=== PATIENT | female | born 1965 | race Caucasian/White ===

== ENCOUNTER 2016-04-08 12:24 | Emergency (ER) | payer BC ==
[2016-04-08 14:04] VITALS: BP 142/83
--- NOTE | 2016-04-08 14:44 | UC ---
UC General HPI - HPI Summary HPI Summary: complaint of left ear feels plugged can't hear out of left ear for approx 1 week feels like there si fluid and pressure in her ear has been urinating more frequently for the last 2-3 days no pain with urination, no increase in urgency denies abnormal vaginal discharge tried monostat and probiotics without any relief denies abdominal pain, back pain - History of Current Complaint Chief Complaint: UCGeneralIllness Stated Complaint: EAR COMPLAINT Time Seen by Provider: 04/08/16 14:27 - Allergy/Home Medications Allergies/Adverse Reactions: Allergies Allergy/AdvReac Type Severity Reaction Status Date / Time environmental Allergy Intermediate Sneezing Uncoded 04/08/16 13:59 Pistacchio Allergy Hives Uncoded 04/08/16 13:59 PMH/Surg Hx/FS Hx/Imm Hx Previously Healthy: Yes Endocrine History Of: Denies: Diabetes Cardiovascular History Of: Denies: Cardiac Disorders Respiratory History Of: Denies: Asthma - Surgical History Surgical History: Yes Surgery Procedure, Year, and Place: ear tubes TMJ;. C-SECT X 1. dental surgery , sinus lift and implant 2014 Dr. Collins - Family History Known Family History: Positive: None, Other - brother: colon cancer, sister: breast; Negative: Cardiac Disease, Hypertension, Diabetes - Social History Occupation: Employed Full-time Lives: With Family Alcohol Use: Occasionally Alcohol Amount: 2 times a week Substance Use Type: None Smoking Status (MU): Never Smoked Tobacco Have You Smoked in the Last Year: No - Immunization History Most Recent Influenza Vaccination: January 2016 Most Recent Tetanus Shot: within past 10 years per pt Hx Tetanus, Diphtheria Vaccination: Yes Vaccination Up to Date: Yes Review of Systems Constitutional: Negative Skin: Negative Eyes: Negative ENT: Ear Ache Respiratory: Negative Cardiovascular: Negative Gastrointestinal: Negative Genitourinary: Frequency Motor: Negative Neurovascular: Negative Musculoskeletal: Negative Neurological: Negative Psychological: Negative All Other Systems Reviewed And Are Negative: Yes Physical Exam Triage Information Reviewed: Yes Appearance: No Pain Distress, Well-Nourished Vital Signs: Initial Vital Signs Temp 98.2 F 04/08/16 13:56 Pulse 66 04/08/16 13:56 Resp 16 04/08/16 13:56 BP 142/83 04/08/16 13:56 Pulse Ox 99 04/08/16 13:56 Vital Signs Reviewed: Yes Eyes: Positive: Conjunctiva Clear ENT: Positive: Pharynx normal, Other: - left TM blocked by cerumen. Negative: Nasal congestion Neck: Positive: No Lymphadenopathy Respiratory: Positive: Lungs clear, Normal breath sounds, No respiratory distress Cardiovascular: Positive: RRR, No Murmur, Pulses Normal Abdomen Description: Positive: Nontender, Soft Bowel Sounds: Positive: Present Musculoskeletal: Positive: No Edema Neurological: Positive: Alert Psychological Exam: Normal Skin Exam: Normal Procedures - Additional Procedures Additional Procedures: arterial blood draw - TM- cermen removed with flusign and instrument , TM flat and clear Course/Dx - Course Course Of Treatment: exam completed. 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 Discharge - Discharge Plan Condition: Stable Disposition: HOME Patient Education Materials: Cerumen Impaction (ED) Referrals: Alondra Bradford MD [Primary Care Provider] - Additional Instructions: Please review your discharge instructions. If your symptoms do not improve please call your primary care provider or return to urgent care
== END 2016-04-08 15:19 | disposition home or self-care (01) ==
LOC: UCCORT 12:24
DX: H61.22 Impacted cerumen, left ear (principal)
CPT/HCPCS: 99213; G0463

== ENCOUNTER 2016-04-21 17:44 | Emergency (ER) | payer BC ==
[2016-04-21 19:37] VITALS: BP 137/70
[2016-04-21] MEDS ORDERED: Amoxicillin/Clavulanate TAB* 875 MG PO ONE (19:54)
--- NOTE | 2016-04-21 20:11 | UC ---
Throat Pain/Nasal Navin HPI - HPI Summary HPI Summary: SINUS PRESSURE CONGESTION FOR ONE WEEK; HISTORY OF SINUS SURGERY, LOW GRADE FEVER. WORSENING FACIAL PRESSURE AND PAIN MOSTLY ON RIGHT SIDE - History of Current Complaint Chief Complaint: UCGeneralIllness Stated Complaint: SINUS PAIN,CONGESTION Time Seen by Provider: 04/21/16 19:41 Hx Obtained From: Patient Hx Last Menstrual Period: 10/18/15 Onset/Duration: Gradual Onset, Lasting Weeks, Worse Since - DAILY Severity: Moderate Pain Intensity: 8 Pain Scale Used: 0-10 Numeric Cough: Productive Associated Signs & Symptoms: Positive: Dysphagia, Sinus Discomfort, Nasal Discharge, Fever - Epiglottits Risk Factors Epiglottis Risk Factors: Negative - Allergies/Home Medications Allergies/Adverse Reactions: Allergies Allergy/AdvReac Type Severity Reaction Status Date / Time environmental Allergy Intermediate Sneezing Uncoded 04/21/16 19:32 Pistacchio Allergy Hives Uncoded 04/21/16 19:32 Home Medications: Home Medications Fluticasone NASAL SPRAY 50MCG* [Flonase NASAL SPRAY 50MCG*] 2 spray BOTH NARES DAILY 04/21/16 [History Confirmed 04/21/16] Ibuprofen TAB* [Advil TAB*] 400 mg PO Q6H PRN 04/21/16 [History Confirmed ] PMH/Surg Hx/FS Hx/Imm Hx Previously Healthy: Yes Endocrine History Of: Denies: Diabetes Cardiovascular History Of: Denies: Cardiac Disorders Respiratory History Of: Denies: Asthma - Surgical History Surgical History: Yes Surgery Procedure, Year, and Place: ear tubes TMJ;. C-SECT X 1. dental surgery , sinus lift and implant 2014 Dr. Collins - Family History Known Family History: Positive: None, Other - brother: colon cancer, sister: breast; Negative: Cardiac Disease, Hypertension, Diabetes, Respiratory Disease - Social History Occupation: Employed Full-time Lives: With Family Alcohol Use: Occasionally Alcohol Amount: 2 times a week Substance Use Type: None Smoking Status (MU): Never Smoked Tobacco Have You Smoked in the Last Year: No - Immunization History Most Recent Influenza Vaccination: January 2016 Most Recent Tetanus Shot: within past 10 years per pt Hx Tetanus, Diphtheria Vaccination: Yes Vaccination Up to Date: Yes Review of Systems Constitutional: Fever Skin: Negative Eyes: Negative ENT: Ear Ache, Nasal Discharge Respiratory: Cough Cardiovascular: Negative Gastrointestinal: Negative Genitourinary: Negative Motor: Negative Neurovascular: Negative Musculoskeletal: Negative Neurological: Negative Psychological: Negative All Other Systems Reviewed And Are Negative: Yes Physical Exam Triage Information Reviewed: Yes Appearance: Well-Appearing, No Pain Distress, Well-Nourished Vital Signs: Initial Vital Signs Temp 99.7 F 04/21/16 19:32 Pulse 78 04/21/16 19:32 Resp 16 04/21/16 19:32 BP 137/70 04/21/16 19:32 Pulse Ox 98 04/21/16 19:32 Vital Signs Reviewed: Yes Eye Exam: Normal ENT: Positive: Hearing grossly normal, TM bulging, TM dull Dental Exam: Normal Neck exam: Normal Neck: Positive: Supple, Nontender, No Lymphadenopathy Respiratory Exam: Normal Respiratory: Positive: Chest non-tender, Lungs clear, Normal breath sounds, No respiratory distress, No accessory muscle use Cardiovascular Exam: Normal Cardiovascular: Positive: RRR, No Murmur, Pulses Normal, Brisk Capillary Refill Abdominal Exam: Normal Abdomen Description: Positive: Nontender, No Organomegaly, Soft Musculoskeletal Exam: Normal Musculoskeletal: Positive: Strength Intact Neurological Exam: Normal Psychological Exam: Normal Psychological: Positive: Normal Response To Family Skin Exam: Normal Throat Pain/Nasal Course/Dx - Differential Dx/Diagnosis Differential Diagnosis/HQI/PQRI: Otitis Media, Sinusitis, URI Provider Diagnoses: SINUSITIS Discharge - Discharge Plan Condition: Stable Disposition: HOME Prescriptions: Amoxicillin/Clavulanate TAB* [Augmentin TAB 875*] 875 mg PO BID #20 tab Patient Education Materials: Sinusitis (ED) Referrals: Alondra Bradford MD [Primary Care Provider] -
== END 2016-04-21 20:02 | disposition home or self-care (01) ==
LOC: UCCORT 17:44
DX: J32.9 Chronic sinusitis, unspecified (principal)
CPT/HCPCS: 99212; A9270-GY; G0463

== ENCOUNTER 2016-08-09 13:05 | Emergency (ER) | payer BC ==
[2016-08-09 13:42] VITALS: BP 135/73
--- NOTE | 2016-08-09 14:39 | UC ---
Ear Complaint HPI - HPI Summary HPI Summary: here to have left ear flushed---needs irragation q 3 months--- - History of Current Complaint Chief Complaint: UCEar Stated Complaint: LEFT EAR PAIN Time Seen by Provider: 08/09/16 14:29 Hx Obtained From: Patient Hx Last Menstrual Period: n/a ?: No Onset/Duration: Gradual Onset, Lasting Weeks, Still Present Severity Initially: Moderate Severity Currently: Moderate Pain Intensity: 6 Pain Scale Used: 0-10 Numeric Aggravating Factors: Nothing Alleviating Factors: Nothing - Allergies/Home Medications Allergies/Adverse Reactions: Allergies Allergy/AdvReac Type Severity Reaction Status Date / Time environmental Allergy Intermediate Sneezing Uncoded 08/09/16 13:42 Pistacchio Allergy Hives Uncoded 08/09/16 13:42 PMH/Surg Hx/FS Hx/Imm Hx Previously Healthy: Yes Endocrine History Of: Denies: Diabetes Cardiovascular History Of: Denies: Cardiac Disorders Respiratory History Of: Denies: Asthma - Surgical History Surgical History: Yes Surgery Procedure, Year, and Place: ear tubes TMJ;. C-SECT X 1. dental surgery , sinus lift and implant 2014 Dr. Collins - Family History Known Family History: Positive: None, Other - brother: colon cancer, sister: breast; Negative: Cardiac Disease, Hypertension, Diabetes, Respiratory Disease - Social History Occupation: Employed Full-time Lives: With Family Alcohol Use: Occasionally Alcohol Amount: 2 times a week Substance Use Type: None Smoking Status (MU): Never Smoked Tobacco Have You Smoked in the Last Year: No - Immunization History Most Recent Influenza Vaccination: January 2016 Most Recent Tetanus Shot: within past 10 years per pt Hx Tetanus, Diphtheria Vaccination: Yes Vaccination Up to Date: Yes Review of Systems Constitutional: Negative Skin: Negative Eyes: Negative ENT: Ear Ache - left ear Respiratory: Negative Cardiovascular: Negative Gastrointestinal: Negative Genitourinary: Negative Motor: Negative Neurovascular: Negative Musculoskeletal: Negative Neurological: Negative Psychological: Negative All Other Systems Reviewed And Are Negative: Yes Physical Exam Triage Information Reviewed: Yes Appearance: Well-Appearing, No Pain Distress, Well-Nourished Vital Signs: Initial Vital Signs Temp 99.1 F 08/09/16 13:34 Pulse 63 08/09/16 13:34 Resp 16 08/09/16 13:34 BP 135/73 08/09/16 13:34 Pulse Ox 99 08/09/16 13:34 Eye Exam: Normal Eyes: Positive: Conjunctiva Clear ENT Exam: Normal ENT: Positive: Normal ENT inspection, Hearing grossly normal, Pharynx normal, TMs normal - left orginally with cerumen impacction after irragation TM WNL. Negative: Nasal congestion, Nasal drainage Dental Exam: Normal Neck exam: Normal Neck: Positive: Supple, Nontender, No Lymphadenopathy Respiratory Exam: Normal Respiratory: Positive: Chest non-tender, Lungs clear, Normal breath sounds, No respiratory distress, No accessory muscle use Cardiovascular Exam: Normal Cardiovascular: Positive: RRR, No Murmur, Pulses Normal, Brisk Capillary Refill Musculoskeletal Exam: Normal Musculoskeletal: Positive: Strength Intact, ROM Intact, No Edema Neurological Exam: Normal Neurological: Positive: Alert, Muscle Tone Normal, Fatigued Psychological Exam: Normal Psychological: Positive: Normal Response To Family, Age Appropriate Behavior Skin Exam: Normal Skin: Positive: rashes, breakdown Re-Evaluation - Re-Evaluation First Eval Change: Improved - tolerated irragation well, patient reports resolve of pain Ear Complaint Course/Dx - Course Course Of Treatment: follow with Dr. Rios ( at your preference) as you have orginaaly planed, re-check prb - Differential Dx/Diagnosis Differential Diagnosis/HQI/PQRI: Cerumen Impaction, Otitis Media, Perforated TM , Trauma, URI Provider Diagnoses: helt ear cerumen impaction Discharge - Discharge Plan Condition: Stable Disposition: HOME Patient Education Materials: Cerumen Impaction (ED) Referrals: Dennis Ta MD [Medical Doctor] - (as planned) No Primary Care Phys,NOPCP [Primary Care Provider] -
== END 2016-08-09 15:22 | disposition home or self-care (01) ==
LOC: UCCORT 13:05
DX: H61.22 Impacted cerumen, left ear (principal)
CPT/HCPCS: 99212; G0463

== ENCOUNTER 2017-02-28 11:28 | Emergency (ER) | payer BC ==
[2017-02-28 12:09] VITALS: BP 143/85
--- NOTE | 2017-02-28 12:56 | UC ---
Ear Complaint HPI - HPI Summary HPI Summary: 51 yo female c/o Left ear clogged, discomfort, hearing problems. Sx started early this week, progressively worse. No fever / chills. No recent illness. No n/v. 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 - History of Current Complaint Chief Complaint: UCEar Stated Complaint: LEFT EAR CLOGGED Time Seen by Provider: 02/28/17 12:39 Hx Obtained From: Patient Hx Last Menstrual Period: n/a ?: No - Allergies/Home Medications Allergies/Adverse Reactions: Allergies Allergy/AdvReac Type Severity Reaction Status Date / Time environmental Allergy Intermediate Sneezing Uncoded 02/28/17 12:09 Pistacchio Allergy Hives Uncoded 02/28/17 12:09 Home Medications: Home Medications Cetirizine* [ZyrTEC 10 MG TAB*] 10 mg PO QPM 02/28/17 [History Confirmed ] Cyclosporine 0.05% OPHTH (NF) [Restasis 0.05% OPHTH] 1 drop BOTH EYES BID [History Confirmed 02/28/17] PMH/Surg Hx/FS Hx/Imm Hx Previously Healthy: Yes - see hpi - Surgical History Surgical History: Yes Surgery Procedure, Year, and Place: ear tubes TMJ; b/l cataract surgery 11/2016 Dr. Yan. C-SECT X 1. dental surgery, right sinus lift and implant 2014 Dr. Collins - Family History Known Family History: Positive: None, Other - brother: colon cancer, sister: breast; Negative: Cardiac Disease, Hypertension, Diabetes, Respiratory Disease - Social History Alcohol Use: Occasionally Alcohol Amount: 2 times a week Substance Use Type: None Smoking Status (MU): Never Smoked Tobacco Have You Smoked in the Last Year: No - Immunization History Most Recent Influenza Vaccination: January 2016 Most Recent Tetanus Shot: within past 10 years per pt Hx Tetanus, Diphtheria Vaccination: Yes Vaccination Up to Date: Yes Review of Systems Constitutional: Negative Skin: Negative Eyes: Negative ENT: Ear Ache - see hpi Respiratory: Negative Cardiovascular: Negative Gastrointestinal: Negative Genitourinary: Negative Motor: Negative Neurovascular: Negative Musculoskeletal: Negative Neurological: Negative Psychological: Negative Is Patient Immunocompromised?: No All Other Systems Reviewed And Are Negative: Yes Physical Exam Triage Information Reviewed: Yes Appearance: Well-Appearing, Well-Nourished Vital Signs: Initial Vital Signs Temp 98.1 F 02/28/17 11:59 Pulse 87 02/28/17 11:59 Resp 18 02/28/17 11:59 BP 143/85 02/28/17 11:59 Vital Signs Reviewed: Yes Eye Exam: Normal - grossly normal ENT Exam: Other - R TM visible, aquino. There is mod cerumen in EAC. After irrigation, EAC a little red, but o/w nad. L TM not visible. ++ cerumen impaction. After irrigation, EAC a little red, TM intact, aquino. Neck exam: Normal Respiratory Exam: Normal - no tachypnea, no dyspnea Cardiovascular Exam: Normal - normal heart rate. nondiaphoretic Abdominal Exam: Normal - no c/o pain or upset Musculoskeletal Exam: Normal - no c/o. gait steady. Neurological Exam: Normal - grossly nonfocal, neuro exam not done Psychological Exam: Normal - conversing easily and appropriately. psychological exam not done Skin Exam: Normal - no visible or reported rash Ear Complaint Course/Dx - Course Course Of Treatment: Irrigated by RN. Pt reports that redness post irrigation is normal for her. Does not want ear drops. Questions as posed answered to the best of my ability. - Differential Dx/Diagnosis Provider Diagnoses: Cerumen impaction Discharge - Discharge Plan Condition: Stable Disposition: HOME Patient Education Materials: Cerumen Impaction (ED) Referrals: No Primary Care Phys,NOPCP [Primary Care Provider] -
== END 2017-02-28 13:38 | disposition home or self-care (01) ==
LOC: UCCORT 11:28
DX: H61.22 Impacted cerumen, left ear (principal)
CPT/HCPCS: 99213; G0463

== ENCOUNTER 2017-06-14 18:59 | Emergency (ER) | payer BC ==
--- OUTSIDE RECORDS SUMMARY | 2017-06-14 19:07 | XMS REPORT ---
:1965 External Reference #:[id number] Author Organization [facility] [employer] Address [address] [place] [address] Phone [phone] Care Team Providers Name Role Phone Alondra Bradford MD Primary Care Physician Unavailable Payers Type Date Identification Numbers Payment Provider Subscriber Commercial Policy Number: [id number] BS [employer] Shyam Matta PayID: [id number] [address] [address] [place] [address] Problems Date Description Provider Status Onset: 04/06/2012 Glossopharyngeal neuralgia Dennis Ta M.D. Active Onset: 04/06/2012 Deviated nasal septum Dennis Ta M.D. Active Family History Date Family Member(s) Problem(s) Comments General Non Contributory Social History Type Date Description Comments Marital Status Occupation Speech/Language Pathologist Cigarette Use Never Smoked Cigarettes ETOH Use Rarely consumes alcohol Recreational Drug Use Never Used Drugs Smoking Patient has never smoked Allergies, Adverse Reactions, Alerts Date Description Reaction Status Severity Comments 04/06/2012 No Known Drug Allergy active 04/06/2012 Environmental active 06/02/2017 Pistachios active Moderate 06/02/2017 [place] active Moderate Medications Medication Date Status Form Strength Qnty SIG Indications Ordering Provider Fluticasone 08/23/ Active Suspension 50mcg/Act 32gm 2 sprays Noelle Ta 2016 both Dennis, nostrils M.D. every day Restasis / Active Emulsion 0.05% Unknown 0000 Xyzal Allergy 02/03/ Hx Tablets 5mg 30tabs 1 by Keyon, 24HR 2017 - mouth Dennis, 06/02/ every day M.D. 2018 Xyzal 08/23/ Hx Tablets 5mg 30tabs 1 by Keyon, 2017 - mouth Dennis, 02/03/ every day M.D. 2016 Dexamethasone 08/13/ Hx Tablets 4mg 5tabs one tab Keyon, 2016 - daily for Dennis, days M.D. 2017 Carbamazepine 04/06/ Hx Chewtabs 100mg 30unit 1 po bid Keyon, 2012 - s Dennis, 08/12/ M.D. 2016 Amoxicillin/Cla / Hx Tablets 500-125mg 3tabs 1 po tid Unknown vulanate 0000 - for 10 Potassium 2016 Celebrex / Hx 100mg 1 PO qd Unknown 0000 - 2016 Loratadine / Hx Tablets 10mg 90tabs 1 po qd Unknown 0000 - 2016 Vital Signs Date Vital Result Comment 06/02/2017 Weight 160.12 lb Height 64 inches 5'4" BMI (Body Mass Index) 27.5 kg/m2 BP Systolic 142 mmHg BP Diastolic 91 mmHg Heart Rate 94 /min O2 % BldC Oximetry 98 % room air Body Temperature 96.2 F Pain Level 0 08/13/2016 Weight 157.00 lb Height 64 inches 5'4" BMI (Body Mass Index) 26.9 kg/m2 BP Systolic 142 mmHg BP Diastolic 89 mmHg Heart Rate 67 /min O2 % BldC Oximetry 97 % Body Temperature 98.6 F Pain Level 0 04/06/2012 Weight 157.00 lb Height 64 inches 5'4" BMI (Body Mass Index) 26.9 kg/m2 BP Systolic 130 mmHg BP Diastolic 88 mmHg Heart Rate 73 /min O2 % BldC Oximetry 99 % Body Temperature 98.2 F Results Test Date Test Result H/L Range Note CBS W/Automated Diff 08/13/2016 White Blood Count 7.0 K/uL 3.1-10.7 1 Red Blood Count 4.83 M/uL 3.90-5.40 1 Hemoglobin 14.7 gm/dL 11.6-15.8 1 Hematocrit 42.9 % 36.0-46.1 1 Mean Cell Volume 88.8 fl 80.9-99.0 1 Mean Corpuscular HGB 30.4 pg 25.9-32.7 1 Mean Corpuscular HGB Conc 34.3 g/dL 30.8-34.3 1 Platelet Count 241 K/uL 150-400 1 Red Cell Distri Width SD 39.8 fl 3-47 1 Red Cell Distri Width %CV 12.4 % 11.7-14.4 1 Mean Platelet Volume 10.9 fL 8.9-12.4 1 Neut% 57.3 % 40.4-72.8 1 Lymph % 33.6 % 20.0-42.0 1 Island % 7.4 % 4.3-13.2 1 Eo% 1.3 % 0.0-6.6 1 Bas% 0.4 % 0.0-1.1 1 Neut# 4.01 K/uL 1.8-7.0 1 Lymph # 2.35 K/uL 1.0-4.0 1 Island # 0.52 K/uL 0.3-0.9 1 Eos # 0.09 K/uL 0.0-0.5 1 Baso # 0.03 K/uL 0.0-0.1 1 LDL Cholesterol Profile 08/13/2016 Cholesterol 212 mg/dL High <200 1, 2 Triglycerides 221 mg/dL High <150 1, 3 HDL Cholesterol 45 mg/dL >40 1, 4 LDL-Cholesterol 123 mg/dL < 100 1, 5 TSH+Free T4 08/13/2016 Thyroid Stim Hormone 1.28 uIU/mL 0.30-4.20 1 Free T4 1.07 ng/dL 0.76-1.46 1 Basic Metabolic Panel 08/13/2016 Glucose 82 mg/dL 74-106 1 BUN 16 mg/dL 7-18 1 Creatinine 0.7 mg/dL 0.6-1.3 1 Glom Filtration Rate, Estimate >60 mL/min >60 1 If >60 mL/min >60 1, 6 BUN/Creat 22.8 ratio 1 Sodium 141 mmol/L 136-145 1 Potassium 4.6 mmol/L 3.5-5.1 1 Chloride 106 mmol/L 98-107 1 Carbon Dioxide 25 mmol/L 21-32 1 Anion Gap 10 mEq/L 8-16 1 Calcium 9.3 mg/dL 8.5-10.1 1 1 H92.09 R53.83 2 Reference Guidelines*: Desirable: ........... < 200 mg/dL Borderline High: ..... 200-239 mg/dL High: ................ >=240 mg/dL * The National Cholesterol Education Program (NCEP) 3 Reference Guidelines*: Normal: ............. < 150 mg/dL Borderline High: .... 150-199 mg/dL High: ............... 200-499 mg/dL Very High: .......... > 500 mg/dL * Source: National Cholesterol Education Program (NCEP) 4 Reference Guidelines*: Low HDL: ..... < 40 mg/dL Normal: ..... 40-60 mg/dL Desirable: ... > 60 mg/dL *The National Cholesterol Education Program(NCEP) 5 Reference Guidelines*: Optimal:........... <100 mg/dL Near Optimal....... 100-129 mg/dL Borderline High.... 130-159 mg/dL High............... 160-189 mg/dL Very High.......... >=190 mg/dL * Source: National Cholesterol Education Program (NCEP) 6 Note: Persistent reduction for 3 months or more in an eGFR <60 mL/min/1.73 m2 defines CKD. Patients with eGFR values >/=60 mL/min/1.73 m2 may also have CKD if evidence of persistent proteinuria is present. The original MDRD equation for estimated GFR is not valid for patients less than 18 years of age. Additional information may be found at www.kdoqi.org. Procedures Date CPT Code Description Status 08/13/2016 87955 Tympanometry Completed 08/13/2016 60858 Tympanometry Completed 04/06/2012 80761 Tympanometry Completed 04/06/2012 87689 Nasal Endoscopy, Diag. Completed Encounters Type Date Location Provider CPT E/M Dx Office Visit 08/13/2016 10:45a Main Office Dennis Ta M.D. 21948 H69.92 Office Visit 04/06/2012 3:00p Main Office Dnenis Ta M.D. 77472 352.1 [phone] Plan of Care No Information Available
--- OUTSIDE RECORDS SUMMARY | 2017-06-14 19:07 | XMS REPORT ---
:1965 External Reference #:[id number] Author Organization [facility] [employer] Address [address] [place] [address] Phone [phone] Care Team Providers Name Role Phone Alondra Bradford MD Primary Care Physician Unavailable Payers Type Date Identification Numbers Payment Provider Subscriber Commercial Policy Number: [id number] BS [employer] Shyam Matta PayID: [id number] [address] [address] [place] [address] Problems Date Description Provider Status Onset: 04/06/2012 [...] Environmental active 06/02/2017 Pistachios active Moderate 06/02/2017 [place] active Moderate Medications Medication Date Status Form Strength Qnty SIG Indications Ordering Provider Dexamethasone 06/02/ Active Tablets 4mg 5tabs one tab Keyon, 2018 daily for Dennis, 5 days M.D. Levocetirizine 06/02/ Active Tablets 5mg 30tab 1 by Raheel Tachlorroger 2018 s mouth Dennis, every day M.D. Fluticasone 08/23/ Active Suspension 50mcg/Act 32gm 2 sprays Keyon Propionate 2016 both Dennis, nostrils M.D. every day Restasis 00/ Active Emulsion 0.05% Unknown 0000 Xyzal Allergy 02/03/ Hx Tablets 5mg 30tab 1 by Keyon, 24HR 2017 - s mouth Dennis, 06/02/ every day M.D. 2017 Xyzal 08/23/ Hx Tablets 5mg 30tab 1 by Keyon, 2017 - s mouth Dennis, 02/03/ every day M.D. 2016 Dexamethasone 08/13/ Hx Tablets 4mg 5tabs one tab Keyon, 2016 - daily for Dennis, 06/02/ 5 days M.D. 2017 Carbamazepine 04/06/ Hx Chewtabs 100mg 30uni 1 po bid Keyon, 2012 - ts Dennis, 08/12/ M.D. 2016 Amoxicillin/Clavu / Hx Tablets 500-125mg 3tabs 1 po tid Unknown lanate Potassium 0000 - for 10 2016 Celebrex / Hx 100mg 1 PO qd Unknown 0000 - 2016 Loratadine / Hx Tablets 10mg 90tab 1 po qd Unknown 0000 - s 2016 Vital Signs Date Vital Result Comment [...] 1 Lymph % 33.6 % 20.0-42.0 1 Marion % 7.4 % 4.3-13.2 1 Eo% 1.3 % 0.0-6.6 1 Bas% 0.4 % 0.0-1.1 1 Neut# 4.01 K/uL 1.8-7.0 1 Lymph # 2.35 K/uL 1.0-4.0 1 Marion # 0.52 K/uL 0.3-0.9 1 Eos # [...] www.kdoqi.org. Procedures Date CPT Code Description Status 06/02/2017 54694 Remove Impacted Cerumen Completed 08/13/2016 96893 Tympanometry Completed 08/13/2016 14247 Tympanometry Completed 04/06/2012 18802 Tympanometry Completed 04/06/2012 00498 Nasal Endoscopy, Diag. Completed Encounters Type Date Location Provider CPT E/M Dx Office Visit 06/02/2017 2:45p [place] [address] H69.92 H61.22 Office Visit 08/13/2016 10:45a Main Office Dennis Ta M.D. 66993 H69.92 Office Visit 04/06/2012 3:00p Main Office Dennis Ta M.D. 90252 352.1 [phone] Plan of Care No Information Available
[2017-06-14 19:24] VITALS: BP 153/76
--- NOTE | 2017-06-14 19:53 | UC ---
Throat Pain/Nasal Navin HPI - HPI Summary HPI Summary: C/O sinus pain over the last 5 days, feeling feverish. Cough only from PND. - History of Current Complaint Chief Complaint: UCGeneralIllness Stated Complaint: SINUS COMPLAINT Time Seen by Provider: 06/14/17 19:19 Hx Last Menstrual Period: n/a Onset/Duration: Gradual Onset, Lasting Days, Worse Since - last 2 days Severity: Moderate Pain Intensity: 6 Cough: Nonproductive Associated Signs & Symptoms: Positive: Sinus Discomfort, Fever. Negative: Wheezing, Vomiting Related History: Seasonal Allergies - Allergies/Home Medications Allergies/Adverse Reactions: Allergies Allergy/AdvReac Type Severity Reaction Status Date / Time prednisone AdvReac mood Verified 06/14/17 19:14 changes environmental Allergy Intermediate Sneezing Uncoded 06/14/17 19:09 Pistacchio Allergy Hives Uncoded 06/14/17 19:09 Home Medications: Home Medications Levocetirizine Dihydrochloride [Xyzal] 5 mg PO DAILY 06/14/17 [History Confirmed 06/14/17] PMH/Surg Hx/FS Hx/Imm Hx Previously Healthy: Yes - Surgical History Surgical History: Yes Surgery Procedure, Year, and Place: ear tubes TMJ; b/l cataract surgery 11/2016 Dr. Yan. C-SECT X 1. dental surgery, right sinus lift and implant 2014 Dr. Collins - Family History Known Family History: Positive: Other - brother: colon cancer, sister: breast; Negative: Cardiac Disease, Hypertension, Diabetes, Respiratory Disease - Social History Occupation: Employed Full-time Lives: With Family Alcohol Use: Occasionally Alcohol Amount: 2 times a week Substance Use Type: None Smoking Status (MU): Never Smoked Tobacco Have You Smoked in the Last Year: No - Immunization History Most Recent Influenza Vaccination: January 2016 Most Recent Tetanus Shot: within past 10 years per pt Hx Tetanus, Diphtheria Vaccination: Yes Vaccination Up to Date: Yes Review of Systems Constitutional: Fever ENT: Sinus Congestion, Sinus Pain/Tenderness Is Patient Immunocompromised?: No All Other Systems Reviewed And Are Negative: Yes Physical Exam Triage Information Reviewed: Yes Appearance: Well-Appearing, No Pain Distress, Well-Nourished Vital Signs: Initial Vital Signs Temp 98.2 F 06/14/17 19:14 Pulse 72 06/14/17 19:14 Resp 14 06/14/17 19:14 BP 153/76 06/14/17 19:14 Pulse Ox 100 06/14/17 19:14 Vital Signs Reviewed: Yes Eyes: Positive: Conjunctiva Clear ENT: Positive: Pharynx normal, Nasal congestion, TMs normal Neck exam: Normal Respiratory Exam: Normal Cardiovascular Exam: Normal Musculoskeletal Exam: Normal Neurological Exam: Normal Psychological Exam: Normal Skin Exam: Normal Throat Pain/Nasal Course/Dx - Differential Dx/Diagnosis Differential Diagnosis/HQI/PQRI: Otitis Media, Sinusitis, Tonsillitis, URI Provider Diagnoses: Allergic rhinitis. Acute sinusitis Discharge - Sign-Out/Discharge Documenting (check all that apply): Discharge - Discharge Plan Condition: Stable Disposition: HOME Prescriptions: Amoxicillin PO (*) [Amoxicillin 875 MG (*)] 875 mg PO BID #20 tab Patient Education Materials: Allergic Rhinitis (ED), Sinusitis (ED), Amoxicillin (By mouth) Referrals: Daniella Laura MD [Primary Care Provider] - Additional Instructions: NEILMED SINUS RINSE: CHECK OUT AT [facility] Saline nasal wash helps with mucous, allergies and congestion. It can be used up to twice a day or only as needed. Use lukewarm tap water. It does not have to be sterilized or distilled water. Do 1/3 on each side and snort out of both nostrils. Repeat the process with 1/6 of the bottle on each side with snorting in between to finish the solution in the bottle Use the fluticasone nasal spray 30-45 minutes after the Neilmed sinus rinse. If you do get the left ear to pop, stop the fluticasone first. - Billing Disposition and Condition Condition: STABLE Disposition: HOME
[2017-06-14] MEDS ORDERED: Amoxicillin PO (*) 500 MG CAP PO ONE (19:55)
== END 2017-06-14 20:09 | disposition home or self-care (01) ==
LOC: UCCORT 18:59
DX: J01.90 Acute sinusitis, unspecified (principal); J00 Acute nasopharyngitis [common cold]; Z88.8 Allergy status to other drugs, medicaments and biological substances
CPT/HCPCS: 99212; A9270-GY; G0463

== ENCOUNTER 2017-08-17 13:45 | Emergency (ER) | payer BC ==
--- NOTE | 2017-08-17 14:09 | UC ---
Ear Complaint HPI - HPI Summary HPI Summary: 51 yo female presents with b/l cerumen impaction. She tells me that for the last 15 years she has had trouble with increased ear wax. Usually has a regimen at home of hydrogen peroxide and water that works well, but recently has been getting worse. Here for cerumen disimpaction. Denies fever, chills, sore throat , SOB, chest pain, recent illness. - History of Current Complaint Stated Complaint: LT EAR COMP Time Seen by Provider: 08/17/17 14:09 Hx Obtained From: Patient Hx Last Menstrual Period: n/a Onset/Duration: Gradual Onset Severity Currently: None - Allergies/Home Medications Allergies/Adverse Reactions: Allergies Allergy/AdvReac Type Severity Reaction Status Date / Time prednisone AdvReac mood Verified 06/14/17 19:14 changes environmental Allergy Intermediate Sneezing Uncoded 06/14/17 19:09 Pistacchio Allergy Hives Uncoded 06/14/17 19:09 Home Medications: Home Medications Norgestimate-Ethinyl Estradiol [Ortho-Cyclen 28 Tablet] 1 each PO DAILY [History Confirmed 08/17/17] PMH/Surg Hx/FS Hx/Imm Hx - Additional Past Medical History Additional PMH: Seasonal allergies Previously Healthy: Yes - Surgical History Surgical History: Yes Surgery Procedure, Year, and Place: ear tubes TMJ; b/l cataract surgery 11/2016 Dr. Yan. C-SECT X 1. dental surgery, right sinus lift and implant 2014 Dr. Collins - Family History Known Family History: Positive: Other - brother: colon cancer, sister: breast; Negative: Cardiac Disease, Hypertension, Diabetes, Respiratory Disease - Social History Occupation: Employed Full-time Lives: With Family Alcohol Use: Occasionally Alcohol Amount: 2 times a week Substance Use Type: None Smoking Status (MU): Never Smoked Tobacco Have You Smoked in the Last Year: No - Immunization History Most Recent Influenza Vaccination: January 2016 Most Recent Tetanus Shot: within past 10 years per pt Hx Tetanus, Diphtheria Vaccination: Yes Vaccination Up to Date: Yes Review of Systems Constitutional: Negative Skin: Negative Eyes: Negative ENT: Ear Ache Respiratory: Negative Cardiovascular: Negative Gastrointestinal: Negative Neurological: Negative Psychological: Negative All Other Systems Reviewed And Are Negative: Yes Physical Exam - Summary Physical Exam Summary: GENERAL: NAD. WDWN. No pain distress. SKIN: No rashes, sores, lesions, or open wounds. HEENT: Head: AT/NC Eyes: EOM intact. Conjunctiva clear without inflammation or discharge. Ears: B/L ears: occluded by cerumen. Hearing grossly normal. No canal edema or drainage. Nose: Nasal mucosa pink and moist. NTTP maxillary and frontal sinus. Throat: Posterior oropharynx without exudates, erythema, or tonsillar enlargement. Uvula midline. NECK: Supple. Nontender. No lymphadenopathy. CHEST: CTAB. No r/r/w. No accessory muscle use. Breathing comfortably and in no distress. CV: RRR. Without m/r/g. Pulses intact. Brisk cap refill. NEURO: Alert. CN II-XII grossly intact. PSYCH: Age appropriate behavior. Triage Information Reviewed: Yes Vital Signs: Vital Signs: Temp Pulse Resp BP Pulse Ox 98.7 F 67 15 124/67 98 08/17/17 14:08/17/17 14:08/17/17 14:08/17/17 14:08/17/17 14:09 Ear Complaint Course/Dx - Course Course Of Treatment: B/L cerumen impaction. Disimpacted in the clinic with great relief. TMs without edema or erythema. - Differential Dx/Diagnosis Provider Diagnoses: Cerumen impaction Discharge - Sign-Out/Discharge Documenting (check all that apply): Discharge/Admit/Transfer - Discharge Plan Condition: Stable Disposition: HOME Prescriptions: Neomyc/Polym/HC 1% OTIC SUSP* [Cortisporin Otic Susp 1%*] 4 drop BOTH EYES TID # 1 btl Patient Education Materials: Cerumen Impaction (ED) Referrals: Daniella Laura MD [Primary Care Provider] - Additional Instructions: If you develop a fever, shortness of breath, chest pain, new or worsening symptoms - please call your PCP or go to the ED. - Billing Disposition and Condition Condition: STABLE Disposition: HOME
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
[2017-08-17 14:19] VITALS: BP 124/67
== END 2017-08-17 15:03 | disposition home or self-care (01) ==
LOC: UCCORT 13:45
DX: H61.23 Impacted cerumen, bilateral (principal); Z88.8 Allergy status to other drugs, medicaments and biological substances; Z91.018 Allergy to other foods
CPT/HCPCS: 99213; G0463

== ENCOUNTER 2017-08-26 16:53 | Emergency (ER) | payer BC ==
[2017-08-26 17:57] VITALS: BP 137/80
--- NOTE | 2017-08-26 19:27 | UC ---
Ear Complaint HPI - HPI Summary HPI Summary: Pt c/o left ear pain. Pt had cerumen removal ~ 2 weeks ago. Pt has long history of eustachian tube disorder. - History of Current Complaint Chief Complaint: UCEar Stated Complaint: LT EAR COMP Time Seen by Provider: 08/26/17 17:55 Hx Obtained From: Patient Hx Last Menstrual Period: n/a ?: No Onset/Duration: Gradual Onset, Lasting Days, Still Present, Worse Since - onset Severity Initially: Mild Severity Currently: Moderate Pain Intensity: 7 Pain Scale Used: 0-10 Numeric Associated Signs/Symptoms: Positive: Hearing Loss - Allergies/Home Medications Allergies/Adverse Reactions: Allergies Allergy/AdvReac Type Severity Reaction Status Date / Time prednisone AdvReac mood Verified 08/26/17 17:57 changes environmental Allergy Intermediate Sneezing Uncoded 08/26/17 17:57 Pistacchio Allergy Hives Uncoded 08/26/17 17:57 PMH/Surg Hx/FS Hx/Imm Hx Previously Healthy: Yes - Surgical History Surgical History: Yes Surgery Procedure, Year, and Place: ear tubes TMJ; b/l cataract surgery 11/2016 Dr. Yan. C-SECT X 1. dental surgery, right sinus lift and implant 2014 Dr. Collins - Family History Known Family History: Positive: Other - brother: colon cancer, sister: breast; Negative: Cardiac Disease, Hypertension, Diabetes, Respiratory Disease - Social History Occupation: Employed Full-time Lives: With Family Alcohol Use: Occasionally Alcohol Amount: 2 times a week Substance Use Type: None Smoking Status (MU): Never Smoked Tobacco Have You Smoked in the Last Year: No - Immunization History Most Recent Influenza Vaccination: January 2016 Most Recent Tetanus Shot: within past 10 years per pt Hx Tetanus, Diphtheria Vaccination: Yes Vaccination Up to Date: Yes Review of Systems Constitutional: Negative Skin: Negative Eyes: Negative ENT: Ear Ache - left Respiratory: Negative Cardiovascular: Negative Gastrointestinal: Negative Genitourinary: Negative Motor: Negative Neurovascular: Negative Musculoskeletal: Negative Neurological: Negative Psychological: Negative Is Patient Immunocompromised?: No All Other Systems Reviewed And Are Negative: Yes Physical Exam Triage Information Reviewed: Yes Appearance: Well-Appearing Vital Signs: Initial Vital Signs Temp 98.2 F 08/26/17 17:52 Pulse 61 08/26/17 17:52 Resp 18 08/26/17 17:52 BP 137/80 08/26/17 17:52 Pulse Ox 100 08/26/17 17:52 Vital Signs Reviewed: Yes Eye Exam: Normal ENT Exam: Normal ENT: Positive: Normal ENT inspection Dental Exam: Normal Neck exam: Normal Respiratory Exam: Normal Respiratory: Positive: No respiratory distress Musculoskeletal Exam: Normal Musculoskeletal: Positive: No Edema Psychological Exam: Normal Skin Exam: Normal Ear Complaint Course/Dx - Differential Dx/Diagnosis Differential Diagnosis/HQI/PQRI: Cerumen Impaction, Otitis Externa, Otitis Media , TMJ Syndrome Provider Diagnoses: left ear ache Discharge - Sign-Out/Discharge Documenting (check all that apply): Discharge/Admit/Transfer - Discharge Plan Condition: Stable Disposition: HOME Patient Education Materials: Earache (ED) Referrals: Fernando Mattson MD [Medical Doctor] - If Needed Daniella Laura MD [Primary Care Provider] - If Needed - Billing Disposition and Condition Condition: STABLE Disposition: Home
== END 2017-08-26 18:44 | disposition home or self-care (01) ==
LOC: UCCORT 16:53
DX: H92.02 Otalgia, left ear (principal); Z88.8 Allergy status to other drugs, medicaments and biological substances; Z91.018 Allergy to other foods
CPT/HCPCS: 99211; G0463